=== PATIENT | female | born 1990 | race Caucasian/White ===

== ENCOUNTER 2016-08-17 15:38 | Outpatient (CLI) | payer MEDICAID ==
[~2016-08-17] VITALS: Ht 175.3 cm; Wt 94.1 kg
[~2016-08-17 15:38] MED LIST: ACETAMINOPHEN W1 TA6 PO; ANAPROX-DS550 MG PO; CETIRIZINE; CYPROHEPTADINE4 MG PO; DOXYCYCLINE 10100 MG PO; FLEXERIL 1010 MG/TAB; IBU600 MG PO; MACROBID 1100 MG/CAP PO; NO HOME MEDICATIONS; NORCO 325 MG-51 TAB PO; PERCOCET 325 MG1 TA2 PO; PRENATAL1 TA6 PO; PREVACID 30MG30 MG PO; REGLAN 10MG10 MG/TAB PO; ZITHROMAX 250M250 MG PO; ZOFRAN 4MG T4 MG/TAB PO; ZOFRAN ODT4 MG PO; cough syrup
[2016-08-17 15:57] VITALS: BP 112/74; PULSE 102; TEMP 98.7
[2016-08-17] MEDS ORDERED: ZOLOFT 50MG50 MG PO (16:08)
[2016-08-17] MEDS ORDERED: PRENATAL MVI (16:09)
[2016-08-17 16:13] VITALS: BP 110/74; PULSE 88
== END 2016-08-17 16:20 | disposition home or self-care (01) ==
LOC: LDRO 15:38 → LDR 15:45 → LDRO 16:20
DX: O26.893 Other specified pregnancy related conditions, third trimester (principal); R10.9 Unspecified abdominal pain; M54.9 Dorsalgia, unspecified; Z3A.33 33 weeks gestation of pregnancy
CPT/HCPCS: OP

== ENCOUNTER 2016-09-30 10:02 | Inpatient (IN) | payer MEDICAID ==
[2016-09-30] VITALS (17 sets, daily range): BP systolic 96–126; BP diastolic 50–82; PULSE 65–86; TEMP 97.8–98.3
[~2016-09-30] VITALS: Ht 175.3 cm; Wt 100.0 kg
[~2016-09-30 10:02] MED LIST changes: +PRENATAL MVI; +ZOLOFT 50MG50 MG PO
[2016-09-30] MEDS ORDERED: NATURAL IRON65 MG PO (11:01)
[2016-09-30 11:02] LABS: BASO # 0.1 (0.0-0.2); BASO % 0.8 % (0.0-2.0); EOS # 0.2 (0.0-0.7); EOS % 2.1 % (0-4.0); GRAN # 5.3 (1.4-6.5); GRAN % 63.4 % (42.2-75.2); LYMPH % 24.1 % (20.0-51.0); MEAN CELL VOLUME 79 fl (80.0-100.0); MEAN CORPUSCULAR HGB CONC 32 g/dl (33.0-37.0); MEAN PLATELET VOLUME 11.6 fl (7.4-10.4); MONO # 0.7 (0.1-0.6); MONO % 8.5 % (1.7-9.3); PLATELET COUNT 294 K/mm3 (130-400); RED BLOOD COUNT 4.09 M/mm3 (4.10-5.30); REDCELL DISTRIBUTION WIDTH-CV 15.1 % (11.5-14.5); WHITE BLOOD COUNT 8.4 K/mm3 (4.8-10.8)
[2016-09-30 11:07] LABS: HEMATOCRIT 32.3 % (37.0-47.0); HEMOGLOBIN 10.2 g/dl (12.5-16.0); MEAN CORPUSCULAR HEMOGLOBIN 25 pg (27.0-31.0)
[2016-10-01 00:58] VITALS: BP 109/66; PULSE 72; TEMP 97.8
[2016-10-01 03:39] VITALS: BP 122/79; PULSE 55; TEMP 97.8
[2016-10-01 08:00] VITALS: BP 124/86; PULSE 55; TEMP 97.7
[2016-10-01 08:17] LABS: BASO # 0.1 (0.0-0.2); BASO % 0.6 % (0.0-2.0); EOS # 0.2 (0.0-0.7); EOS % 1.8 % (0-4.0); GRAN # 7.3 (1.4-6.5); LYMPH # 2.3 (1.2-3.4); LYMPH % 20.8 % (20.0-51.0); MEAN CELL VOLUME 80 fl (80.0-100.0); MEAN CORPUSCULAR HGB CONC 31 g/dl (33.0-37.0); MONO % 8.9 % (1.7-9.3); PLATELET COUNT 271 K/mm3 (130-400); RED BLOOD COUNT 3.82 M/mm3 (4.10-5.30); REDCELL DISTRIBUTION WIDTH-CV 15.3 % (11.5-14.5); WHITE BLOOD COUNT 10.8 K/mm3 (4.8-10.8)
[2016-10-01 08:18] LABS: HEMATOCRIT 30.5 % (37.0-47.0); HEMOGLOBIN 9.4 g/dl (12.5-16.0); MEAN CORPUSCULAR HEMOGLOBIN 25 pg (27.0-31.0)
[2016-10-01] MEDS ORDERED: PERCOCET 325 MG1 TA2 PO (09:12)
[2016-10-01] MEDS ORDERED: IBU600 MG PO (09:12)
[2016-10-01 15:40] VITALS: BP 125/83; PULSE 86
[2016-10-01 21:30] VITALS: BP 117/82; PULSE 76; TEMP 97.3
[2016-10-02 07:30] VITALS: BP 128/85; PULSE 91; TEMP 98.4
[2016-10-02] MEDS ORDERED: ZOLOFT 100MG100 MG PO (09:07)
== END 2016-10-02 17:35 | disposition home or self-care (01) | DRG 766 ==
LOC: OB 10:02
PROVIDERS: Obstetrics & Gynecology
PROC: 10D00Z1 Extraction of Products of Conception, Low, Open Approach (ICD-10-PCS; principal; 2016-09-30)
DX: O34.211 Maternal care for low transverse scar from previous cesarean delivery (principal); N85.8 Other specified noninflammatory disorders of uterus; O99.013 Anemia complicating pregnancy, third trimester; D64.9 Anemia, unspecified; Z3A.39 39 weeks gestation of pregnancy; Z37.0 Single live birth
CPT/HCPCS: J0690; J1885; J2270; J2405; J2590; J2704; J7120

== ENCOUNTER 2016-10-25 20:40 | Emergency (ER) | payer MEDICAID ==
[~2016-10-25] VITALS: Ht 175.3 cm; Wt 89.5 kg
[~2016-10-25 20:40] MED LIST changes: +NATURAL IRON65 MG PO; +ZOLOFT 100MG100 MG PO
[2016-10-25 20:50] VITALS: BP 127/87; TEMP 98.8
[2016-10-25] MEDS ORDERED: ZOLOFT 100MG100 MG PO (20:53)
[2016-10-25] MEDS ORDERED: CEPHALEXIN500 M1 PO (21:32)
[2016-10-25 21:33] VITALS: PULSE 74
== END 2016-10-25 21:39 | disposition home or self-care (01) ==
LOC: COL.ER 20:40
DX: O90.0 Disruption of cesarean delivery wound (principal); O99.335 Smoking (tobacco) complicating the puerperium; F17.200 Nicotine dependence, unspecified, uncomplicated

== ENCOUNTER 2016-10-31 06:57 | Emergency (ER) | payer MEDICAID ==
[~2016-10-31] VITALS: Ht 175.3 cm; Wt 81.8 kg
[~2016-10-31 06:57] MED LIST changes: +CEPHALEXIN500 M1 PO
[2016-10-31 07:00] VITALS: TEMP 97.8
[2016-10-31 07:41] LABS: BASO # 0.1 (0.0-0.2); BASO % 0.9 % (0.0-2.0); EOS # 0.2 (0.0-0.7); EOS % 3.2 % (0-4.0); GRAN # 3.8 (1.4-6.5); GRAN % 55.1 % (42.2-75.2); HEMATOCRIT 37.2 % (37.0-47.0); HEMOGLOBIN 11.8 g/dl (12.5-16.0); LYMPH # 2.2 (1.2-3.4); MEAN CELL VOLUME 80 fl (80.0-100.0); MEAN CORPUSCULAR HEMOGLOBIN 25 pg (27.0-31.0); MEAN CORPUSCULAR HGB CONC 32 g/dl (33.0-37.0); MEAN PLATELET VOLUME 10.3 fl (7.4-10.4); MONO # 0.6 (0.1-0.6); MONO % 8.5 % (1.7-9.3); PLATELET COUNT 264 K/mm3 (130-400); RED BLOOD COUNT 4.67 M/mm3 (4.10-5.30); REDCELL DISTRIBUTION WIDTH-CV 17.5 % (11.5-14.5); WHITE BLOOD COUNT 6.8 K/mm3 (4.8-10.8)
[2016-10-31 07:48] LABS: AMPHETAMINE URINE NEGATIVE; BARBITURATES URINE NEGATIVE; BENZODIAZEPINES URINE NEGATIVE; BUPRENORPHINE URINE NEGATIVE; METHADONE URINE NEGATIVE; OPIATES URINE POSITIVE; OXYCODONE URINE NEGATIVE; PHENCYCLIDINE URINE NEGATIVE; PROPOXYPHENE URINE NEGATIVE; THC CANNABINOIDS URINE NEGATIVE
[2016-10-31 07:56] LABS: ACETAMINOPHEN 12 ug/mL (10-30); ADJUSTED CALCIUM 8.9 mg/dL (8.4-10.2); ALANINE AMINOTRANSFERASE 19 U/L (9-52); ALBUMIN 4.4 gm/dL (3.5-5.0); ALKALINE PHOSPHATASE 80 U/L (50-136); ANION GAP 12 mmol/L (7-16); BILIRUBIN,TOTAL 0.5 mg/dL (0.0-1.0); BLOOD UREA NITROGEN 11 mg/dL (7-17); CALCIUM 9.2 mg/dL (8.4-10.2); CARBON DIOXIDE 22 mmol/L (22-30); CHLORIDE 101 mmol/L (98-107); CREATININE, serum 0.65 mg/dL (0.52-1.25); GLUCOSE 87 mg/dL (74-106); POTASSIUM 3.4 mmol/L (3.4-5.0); SODIUM 135 mmol/L (137-145); TOTAL PROTEIN 7.3 gm/dL (6.4-8.2)
[2016-10-31 07:58] LABS: SALICYLATE < 1.0 mg/dL
[2016-10-31 10:48] VITALS: BP 100/74; PULSE 69
== END 2016-10-31 11:07 | disposition home or self-care (01) ==
LOC: COL.ER 06:57
PROVIDERS: Emergency Medicine
DX: O9A.23 Injury, poisoning and certain other consequences of external causes complicating the puerperium (principal); T43.222A Poisoning by selective serotonin reuptake inhibitors, intentional self-harm, initial encounter; F53 Mental and behavioral disorders associated with the puerperium, not elsewhere classified; O99.335 Smoking (tobacco) complicating the puerperium; F17.210 Nicotine dependence, cigarettes, uncomplicated; Z98.818 Other dental procedure status; Z98.890 Other specified postprocedural states
CPT/HCPCS: J7030

== ENCOUNTER 2017-12-22 14:28 | Emergency (ER) | payer SELFPAY ==
[~2017-12-22] VITALS: Ht 175.3 cm; Wt 77.3 kg
[2017-12-22 14:36] VITALS: TEMP 99.4
[2017-12-22 14:54] LABS: COLLECTION METHOD CLEAN CATCH
[2017-12-22] MEDS ORDERED: MARLISSA 30 MCG1 TAB PO (14:54)
[2017-12-22 15:01] LABS: MUCOUS Present /lpf; PH 7 (5-8); SQUAMOUS EPITHELIAL 0-2 /hpf; URINE APPEARANCE Hazy; URINE BACTERIA Rare /hpf; URINE BILIRUBIN Negative (NEGATIVE); URINE BLOOD Negative (NEGATIVE); URINE COLOR Yellow; URINE GLUCOSE Negative (NEGATIVE); URINE KETONE Negative (NEGATIVE); URINE LEUKOCYTE ESTERASE Negative (NEGATIVE); URINE NITRATE Negative (NEGATIVE); URINE PROTEIN(semi-quant) 2+ (NEGATIVE); URINE RBC 0-2 /hpf; URINE UROBILINOGEN Negative (NEGATIVE)
[2017-12-22] MEDS ORDERED: ULTRAM 50MG TAB50 MG PO (16:30)
[2017-12-22 16:40] VITALS: BP 124/78; PULSE 76
== END 2017-12-22 16:38 | disposition home or self-care (01) ==
LOC: COL.ER 14:28
PROVIDERS: Emergency Medicine
DX: R10.32 Left lower quadrant pain (principal); F17.210 Nicotine dependence, cigarettes, uncomplicated; Z98.890 Other specified postprocedural states
CPT/HCPCS: J1885

== ENCOUNTER → 2020-03-05 | Outpatient (CLI) | payer SELFPAY ==
[~2020-03-05] MED LIST changes: +MARLISSA 30 MCG1 TAB PO; +ULTRAM 50MG TAB50 MG PO
== END ==
LOC: ZCOL.LAB 20:54
DX: U07.1 COVID-19 (principal)